=== PATIENT | male | born 1970 | race Caucasian/White ===

== ENCOUNTER → 2017-06-21 | Outpatient (CLI) | payer BC ==
[~2017-06-21] MED LIST: ADVI200T PO; AKWASOL OU; BACT800T5 PO; COLC1CAP PO; KEFL500C17 PO; KETO10TAB PO; LISI-538; LISI-538 PO; PERCOCET PO; SULFAMETHOXAZOLE-TMP
--- NOTE | 2017-06-22 02:32 | REP ---
Clinical: Pain. Technique: AP, lateral, bilateral oblique and sunrise views left knee . Findings: The osseous structures and joint spaces are intact and normal for age. There is no evidence for acute fracture or dislocation. No joint effusion is appreciated. Surrounding soft tissues are unremarkable. No subcutaneous emphysema or radiodense foreign body. Impression: Mild age-related changes. No acute fracture or dislocation. Signed by Reilly Santos MD 06/22/2017 02:23 A
== END ==
LOC: M CLY 09:14
PROVIDERS: ATTEND Nurse Practitioner
DX: M25.562 Pain in left knee (principal)

== ENCOUNTER → 2017-06-21 | Outpatient (REF) | payer BC ==
[2017-06-21 12:37] LABS: ALBUMIN 3.8 GM/DL (3.2-5.2); ALBUMIN/GLOBULIN RATIO 1.19 (1.00-1.93); ALKALINE PHOSPHATASE 69 U/L (45-117); ALT/SGPT 51 U/L (12-78); ANION GAP 12 MEQ/L (8-16); AST/SGOT 33 U/L (15-37); BILIRUBIN,TOTAL 0.5 MG/DL (0.2-1.0); BLOOD UREA NITROGEN 13 MG/DL (7-18); CALCIUM LEVEL 8.8 MG/DL (8.5-10.1); CARBON DIOXIDE LEVEL 24 MEQ/L (21-32); CHLORIDE LEVEL 104 MEQ/L (98-107); CHOLESTEROL LEVEL 187 MG/DL (<200); CREATININE FOR GFR 0.99 MG/DL (0.70-1.30); GLOMERULAR FILTRATION RATE > 60.0 (>60); GLUCOSE, FASTING 96 MG/DL (70-105); POTASSIUM SERUM 4.5 MEQ/L (3.5-5.1); SODIUM LEVEL 140 MEQ/L (136-145); TRIGLYCERIDES LEVEL 205 MG/DL (<150)
== END ==
LOC: M SFHCCLAY 08:44
PROVIDERS: ATTEND Nurse Practitioner
DX: R73.01 Impaired fasting glucose (principal); F17.200 Nicotine dependence, unspecified, uncomplicated; I10 Essential (primary) hypertension

== ENCOUNTER 2017-06-26 10:10 | Inpatient (IN) | payer BC ==
[~2017-06-26] VITALS: Ht 180.3 cm; Wt 114.9 kg
[2017-06-26] MEDS ORDERED: LISI-538 (10:21)
[2017-06-26] MEDS ORDERED: SULFAMETHOXAZOLE-TMP (10:21)
[2017-06-26] MEDS ORDERED: ONDANSETRON 4MG/2ML VIAL (J2405) IV ONE (10:45)
[2017-06-26] MEDS ORDERED: NS 1,000 ML IV ONE (10:45)
[2017-06-26] MEDS ORDERED: MORPHINE 4 MG/ML 1ML SYRINGE IV ONE ×3 (10:45→14:00)
[2017-06-26] MEDS ORDERED: cefTRIAXone SOD 2 GM in D5W MINI-BAG PLUS 50 ML IV ONE (11:00)
[2017-06-26 11:17] LABS: BASO % 0.3 % (0.0-1.0); EOS # 0.2 K/mm3 (0.0-0.50); EOS % 1.2 % (0.0-3.0); LARGE UNSTAINED CELL # 0.1 K/mm3 (0.0-0.4); LARGE UNSTAINED CELL % 0.7 % (0.0-4.0); LYMPH # 1.2 K/mm3 (1.5-4.5); LYMPH % 7.8 % (24.0-44.0); MEAN CORPUSCULAR HEMOGLOBIN 31.7 pg (27.0-33.0); MEAN CORPUSCULAR HGB CONC 34.4 g/dl (32.0-36.5); MEAN CORPUSCULAR VOLUME 92.2 fl (80.0-96.0); MONO # 0.7 K/mm3 (0.0-0.8); MONO % 5.1 % (0.0-5.0); NEUTROPHILS % 84.9 % (36.0-66.0); PLATELET COUNT, AUTOMATED 350 k/mm3 (150-450); RED CELL DISTRIBUTION WIDTH 13.2 % (11.5-14.5); WHITE BLOOD COUNT 14.1 K/mm3 (4.0-10.0)
[2017-06-26 11:39] LABS: CALCIUM LEVEL 8.3 MG/DL (8.5-10.1); CREATININE FOR GFR 1.49 MG/DL (0.70-1.30); GLOMERULAR FILTRATION RATE 53.8 (>60); POTASSIUM SERUM 4.1 MEQ/L (3.5-5.1)
[2017-06-26] MEDS ORDERED: ADVI200T PO (12:02)
[2017-06-26] MEDS ORDERED: LISI-538 PO (12:02)
[2017-06-26] MEDS ORDERED: BACT800T5 PO (12:02)
[2017-06-26] MEDS ORDERED: ISOVUE-370 76% 100ML VIAL (Q9967) As Ordered ONE (12:34)
[2017-06-26] MEDS: HEPARIN SOD (PORCINE) 5000 UNITS/ML VIAL SQ SCH ×2 (14:00→23:18)
--- NOTE | 2017-06-26 14:03 | REP ---
SCROTAL ULTRASOUND: 06/26/2017. Clinical history: Left adam-scrotal pain, swelling, scrotal cellulitis. Findings: Sonographic evaluation of the scrotum and contents show the right testis 5.1 x 3.1 x 2.5 cm. It is homogeneous in echotexture and shows no discrete mass or cyst. There is a solitary calcification in that testis. There is normal color flow within the testis. The Doppler tracing shows resistive index 0.50, normal. The epididymal head has a CC diameter of 7 mm and is unremarkable. No hydrocele. The left testis is smaller, 3.7 x 2.4 x 3.1 cm. It is generally heterogeneous. It is subtly heterogeneous in its posterior aspect. There is no color flow seen within it on multiple interrogations. There is color flow around it. Trace amount of fluid around that testis. The epididymal head has a CC diameter of 13.5 mm. No epididymal head cyst. Adjacent to the testis at the scrotal wall is a 9.6 x 7.8 x 5.2 cm hypoechoic complex focus, likely representing a scrotal abscess. There were no other significant findings. Scrotal wall thickness up to 12.1 mm. Impression: 1. Torsion of the left testis with no color flow within it and slight heterogeneity. It is smaller than the right testis so this may have occurred previously. 2. Large scrotal abscess suggested 9.6 x 7.8 x 5.2 cm. Trace amount of fluid directly around the testis. 3. Right testis normal in echotexture, size and with normal blood flow. Signed by Carl Shaw MD 06/26/2017 06:11 P
--- NOTE | 2017-06-26 14:17 | REP ---
CT ABDOMEN AND PELVIS WITH CONTRAST: 06/26/2017. Comparison: Scrotal ultrasound today. Clinical history: Left scrotal abscess, torsion left testis. Technique: The patient received a bolus of 100 mL of Isovue 370 scanning through the abdomen and pelvis with coronal and sagittal reconstructions. Findings: CT abdomen: The lung bases show minor dependent atelectatic and linear atelectatic changes but were otherwise clear. Heart is not enlarged. No pericardial thickening or effusion. No hiatal hernia. Liver and spleen are not enlarged and show no focal lesion. There is no biliary dilatation nor adjacent ascites in the upper abdomen. Gallbladder shows no calcified stone or mass. Pancreas unremarkable. Adrenal glands were normal. There is scattered diverticulosis in the left colon. The remainder of the abdominal portion of colon unremarkable. The appendix is retrocecal in ascends so that its tip is lateral to the distal or inferior margin of the right lobe of the liver in the mid axillary line of the right upper quadrant. It is normal. Kidneys show function without obstruction, stone or mass. There is no hydronephrosis. I see no hydroureter, renal, ureteral or bladder stone on either side. Small bowel loops are grossly intact. No colitis. No perforation or free air in the abdomen or pelvis. The bones show Schmorl's nodes at multiple endplates without acute compression deformity or destructive lesion. There is some minor hypertrophic facet changes lower lumbar spine. Visible ribs unremarkable. No retroperitoneal adenopathy or aortic abnormality. CT pelvis: Bony hips, pelvis, sacrum, and SI joints unremarkable. Bladder without wall thickening mass or stone. Prostate has a few calcifications inferiorly. There is no pelvic ascites or adenopathy. No ventral or inguinal hernia noted. There are bilateral reactive inguinal nodes. There is a large scrotal mass corresponding to the presumed scrotal abscess seen on ultrasound, it is hypodensity and measures at least 9.5 x 6.4 x 8.4 cm. There were no air bubbles within it. There is no hernia. Scrotal wall is thickened and edematous. Distal left colon, sigmoid and rectum are without any acute findings. Small bowel loops in the deep pelvis unremarkable. Impression: 1. Left-sided scrotal abscess measuring 9.5 x 6.4 x 8.4 cm. No air bubbles within. No inguinal or scrotal hernia evident. Edematous scrotal wall. Reactive adenopathy in both inguinal regions. 2. No renal, ureteral or bladder stone. No hydronephrosis. 3. There were no other significant or acute findings. This study was reviewed at the workstation with the consulting urologist, Dr. Bean. Signed by Carl Shaw MD 06/26/2017 06:19 P
[2017-06-26] MEDS ORDERED: ONDANSETRON 4MG/2ML VIAL (J2405) IV PRN ×2 (14:45→18:45)
[2017-06-26] MEDS ORDERED: ACETAMINOPHEN TAB 650MG DOSE (2X325MG) PO PRN (14:45)
[2017-06-26] MEDS: D5W/0.9% SODIUM CHLORIDE 1,000 ML IV SCH (15:36)
[2017-06-26] MEDS: PIPERACILLIN/TAZOBACTAM SOD 3.375 GM in D5W MINI-BAG PLUS 50 ML IV SCH ×2 (15:39→23:17)
[2017-06-26] MEDS ORDERED: VANCOMYCIN 1000 MG/20 ML VIAL (J3370) As Ordered ONE (16:03)
[2017-06-26] MEDS: VANCOMYCIN HCL 1,000 MG, VIAL MATE ADAPTER 1 EACH in D5W 250 ML IV SCH (16:35)
[2017-06-26] MEDS ORDERED: PROPOFOL 200 MG/20 ML VIAL As Ordered ONE (16:48)
[2017-06-26] MEDS ORDERED: LIDOCAINE 2% INJ 100 MG/5 ML SDV (FOR ANES.) As Ordered ONE (16:48)
[2017-06-26] MEDS ORDERED: ONDANSETRON 4MG/2ML VIAL (J2405) As Ordered ONE (16:48)
[2017-06-26] MEDS ORDERED: MIDAZOLAM INJ 2 MG/2 ML VIAL (J2250) As Ordered ONE (16:48)
[2017-06-26] MEDS ORDERED: fentaNYL 100 MCG/2 ML INJECTION (J3010) As Ordered ONE (16:48)
[2017-06-26] MEDS ORDERED: HYDROmorphone HCL 2 MG/ML 1ML VIAL (J1170) As Ordered ONE (16:49)
[2017-06-26] MEDS ORDERED: PHENYLephrine HCL 500 MCG/5 ML (100MCG/ML) SYRINGE (J2370) As Ordered ONE (16:56)
[2017-06-26] MEDS ORDERED: LIDOCAINE W/EPINEPHRINE 1% 20ML VIAL As Ordered ONE (17:53)
[2017-06-26] MEDS ORDERED: LIDOCAINE 1% SDV INJ 30 ML VIAL As Ordered ONE (17:53)
[2017-06-26] MEDS ORDERED: MEPERIDINE INJ 25 MG/ML VIAL (J2175) As Ordered ONE (18:30)
[2017-06-26] MEDS: MEPERIDINE INJ 25 MG/ML VIAL (J2175) IV PRN ×2 (18:33→18:46)
[2017-06-26] MEDS ORDERED: fentaNYL 100 MCG/2 ML INJECTION (J3010) IV PRN (18:45)
[2017-06-26] MEDS ORDERED: MORPHINE 2 MG/ML 1ML SYRINGE IV PRN ×2 (18:45→19:00)
[2017-06-26] MEDS ORDERED: LR 1,000 ML IV SCH (18:45)
[2017-06-26] MEDS ORDERED: PERCOCET 5MG/325MG TAB PO PRN (19:00)
[2017-06-26] MEDS ORDERED: PERCOCET 5MG/325MG TAB As Ordered ONE (19:02)
[2017-06-26 19:30] VITALS: BP 124/59
[2017-06-26 20:00] VITALS: BP 113/59
[2017-06-26] MEDS: MORPHINE 2 MG/ML 1ML SYRINGE IV PRN (20:25)
[2017-06-26 21:00] VITALS: BP 103/59
[2017-06-26 22:13] VITALS: BP 96/51
[2017-06-26 23:09] VITALS: BP 107/55
[2017-06-26] MEDS: PERCOCET 5MG/325MG TAB PO PRN (23:17)
[2017-06-26] MEDS: FAMOTIDINE 20 MG TAB PO SCH (23:17)
[2017-06-27] VITALS (14 sets, daily range): BP systolic 104–158; BP diastolic 55–95; O2SAT 92–96
[2017-06-27] MEDS: MORPHINE 2 MG/ML 1ML SYRINGE IV PRN ×4 (00:25→08:07)
[2017-06-27] MEDS: VANCOMYCIN HCL 1,000 MG, VIAL MATE ADAPTER 1 EACH in D5W 250 ML IV SCH ×3 (00:26→17:56)
[2017-06-27] MEDS ORDERED: MORPHINE 2 MG/ML 1ML SYRINGE IV ONE ×2 (02:45→11:30)
[2017-06-27] MEDS: PERCOCET 5MG/325MG TAB PO PRN ×3 (03:27→14:53)
[2017-06-27] MEDS: PIPERACILLIN/TAZOBACTAM SOD 3.375 GM in D5W MINI-BAG PLUS 50 ML IV SCH ×4 (03:27→21:23)
[2017-06-27 05:20] LABS: BASO % 0.4 % (0.0-1.0); EOS # 0.2 K/mm3 (0.0-0.50); EOS % 2.1 % (0.0-3.0); LARGE UNSTAINED CELL # 0.2 K/mm3 (0.0-0.4); LARGE UNSTAINED CELL % 1.6 % (0.0-4.0); LYMPH # 1.3 K/mm3 (1.5-4.5); LYMPH % 12.2 % (24.0-44.0); MEAN CORPUSCULAR HEMOGLOBIN 31.6 pg (27.0-33.0); MEAN CORPUSCULAR HGB CONC 33.9 g/dl (32.0-36.5); MEAN CORPUSCULAR VOLUME 93.3 fl (80.0-96.0); MONO # 0.7 K/mm3 (0.0-0.8); MONO % 6.3 % (0.0-5.0); NEUTROPHILS # 8.2 K/mm3 (1.8-7.7); NEUTROPHILS % 77.3 % (36.0-66.0); PLATELET COUNT, AUTOMATED 311 k/mm3 (150-450); RED CELL DISTRIBUTION WIDTH 13.3 % (11.5-14.5); WHITE BLOOD COUNT 10.6 K/mm3 (4.0-10.0)
[2017-06-27 05:31] LABS: CALCIUM LEVEL 7.5 MG/DL (8.5-10.1); CREATININE FOR GFR 1.71 MG/DL (0.70-1.30); GLOMERULAR FILTRATION RATE 45.9 (>60); POTASSIUM SERUM 3.8 MEQ/L (3.5-5.1)
[2017-06-27] MEDS: HEPARIN SOD (PORCINE) 5000 UNITS/ML VIAL SQ SCH ×3 (05:43→21:18)
[2017-06-27] MEDS: D5W/0.9% SODIUM CHLORIDE 1,000 ML IV SCH (05:44)
[2017-06-27] MEDS: diphenhydrAMINE INJ 50MG/ML VIAL (J1200) IV PRN ×2 (06:19→21:35)
--- NOTE | 2017-06-27 07:34 | PHACANCOPD ---
PHARMACY VANCOMYCIN DOSING Pt Demographics Demographics Patient Age:47 , Weight:114.900 , Gender: male Adjusted Body Weight Date: 06/27/17, Adjusted Body Weight: Kg Events Past 24 Hours Events Past 24 Hours: YES: Elevation in WBC, Pending Diagnostics Vancomycin Vancomycin indication: broad spectrum coverage for scrotal abscess amd possible sep Vancomycin Target Ranges: 10-20 mcg/ml Vancomycin Load Y/N: No Load Dose Date Time Vancomycin Load Dose: Date: Time: Vancomycin Dose Date: 06/27/17. Current Vancomycin Dose: [1g IV Q8H] Intermittent Dosing?: No Labs Labs Item Value Date Time White Blood Count 10.6 K/mm3 H 06/27/17 0509 White Blood Count 14.1 K/mm3 H 06/26/17 1101 C-Reactive Protein, Quantitative 23.50 MG/DL H 06/26/17 1101 Micro Microbiology 06/26/17 Blood Culture, Received Pending 06/26/17 Blood Culture, Received Pending 06/26/17 Gram Stain, Received Pending 06/26/17 Wound Culture, Received Pending 06/26/17 Anaerobic Culture, Received Pending 06/26/17 Gram Stain - Final, Resulted 06/26/17 Wound Culture, Resulted Pending 06/26/17 Urine Culture, Received Pending 06/26/17 Gram Stain, Received Pending 06/26/17 Wound Culture, Received Pending Creatinine Clearance Date:06/27/17. Estimated Creatinine Clearance: [~65ml/min]. Assessment and Plan Maintaining Current Dose?: Yes Reason for dose change: No Dose Change Pharmacist Note Pharmacist Note Date: 06/27/17. Pharmacist note: Day #1 empiric IV zosyn/vancomycin initiated at 1g IV Q8H for the treatment of a left scrotal abscess - aiming for a goal trough of 10-20mcg/ml. The patient has failed outpatient antibiotic treatment. WBC and CRP are elevated upon admission, but patient remains afebrile. There is no PMH of MRSA or vanco use here at [facility]. Baseline scr was 0.99 and is now elevated at 1.49. A vancomycin trough has been scheduled for 06/27/17@1600. We will continue to monitor and adjust dosing as needed. DRISS LIZARRAGA [facility]ARM[facility] Jun 27, 2017 07:34
--- NOTE | 2017-06-27 08:38 | IPNPDOC ---
Assessment/Plan Date Seen The patient was seen on 06/27/17. Plan/VTE VTE Prophylaxis Ordered?: Yes Subjective Review oF Systems Chief Complaint POD#1 s/p left scrotal abscess debridement and left orchiectomy No acute events overnight. pain controlled with morphine and percocet. No nausea. Patient is tolerating diet. low grade fever this morning to 100.2 T100.2 VSS NAD Abdomen soft, nt, nd Ext wwp Urine clear yellow Scrotal wound, erythematous with fibrinous exudate, packing and dressing changed Laboratory Tests 06/26/17 11:01 06/27/17 05:09 47 year old male with chronic epididymoorchitis and now admission for 9.6 cm scrotal abscess and no flow to left testicle, who is POD#1 s/p scrotal debridement and exploration, and left orchiectomy - Continue Vancomycin and Zosyn. Pharmacy to adjust for renal function and vanco trough - Follow-up wound cultures, blood cultures, urine cultures - Hospitalist consult for creatinine elevation to 1.71. Likely due to infection and possible prerenal. Hold lisinopril - Continue aggarwal until creatinine improves - Dressing changes BID with wet to dry (saline). Changed pain medication to dilaudid for better pain control and for dressing changes. - Signed out to Dr. Ley from urology who will be taking over care of this patient Objective Vital Signs/I&O Vital Signs Date Time Temp Pulse Resp B/P (MAP) Pulse Ox O2 Delivery O2 Flow Rate FiO2 06/27/17 08:07 18 06/27/17 08:00 100.2 71 105/55 (72) 97 Room Air 06/27/17 05:43 3.0 I&O- Last 24 Hours up to 6 AM 06/27/17 06:00 Intake Total 2740 ml Output Total 1575 ml Balance 1165 ml Laboratory Data Labs 24H Laboratory Tests 2 06/26/17 10:49: Urine Appearance CLEAR, Urine Color YELLOW, Urine pH 5.0, Urine Specific [place] 1.011, Urine Protein NEGATIVE, Urine Glucose (UA) NEGATIVE, Urine Ketones 1+H, Urine Urobilinogen 2.0H, Urine Bilirubin NEGATIVE, Urine Leukocyte Esterase NEGATIVE, Urine Blood NEGATIVE, Urine Nitrite NEGATIVE, Urine WBC (Auto ) 4H, Urine RBC (Auto) 2, Urine Hyaline Casts (Auto) 1, Urine Bacteria (Auto) NEGATIVE, Urine Squamous Epithelial Cells 0, Urine Mucus (Auto) SMALL, Urine Sperm (Auto) , Chlamydia trachomatis DNA (DELBERT) NEGATIVE, Neisseria gonorrhoeae DNA (DELBERT) NEGATIVE 06/26/17 11:01: White Blood Count 14.1H, Red Blood Count 5.11, Hemoglobin 16.2, Hematocrit 47.2 , Mean Corpuscular Volume 92.2, Mean Corpuscular Hemoglobin 31.7, Mean Corpuscular Hemoglobin Concent 34.4, Red Cell Distribution Width 13.2, Platelet Count 350, Neutrophils (%) (Auto) 84.9H, Lymphocytes (%) (Auto) 7.8L, Monocytes (%) (Auto) 5.1H, Eosinophils (%) (Auto) 1.2, Basophils (%) (Auto) 0.3, Neutrophils # (Auto) 12.0H, Lymphocytes # (Auto) 1.2L, Monocytes # (Auto) 0.7, Eosinophils # (Auto) 0.2, Basophils # (Auto) 0.0, Large Unclassified Cells % 0.7 , Large Unclassified Cells # 0.1, Anion Gap 11, Glomerular Filtration Rate 53.8L , Blood Urea Nitrogen 18, Creatinine 1.49H, Sodium Level 135L, Potassium Level 4.1, Chloride Level 100, Carbon Dioxide Level 24, Calcium Level 8.3L, C- Reactive Protein, Quantitative 23.50H 06/27/17 05:09: White Blood Count 10.6H, Red Blood Count 4.21L, Hemoglobin 13.3#L, Hematocrit 39.3L, Mean Corpuscular Volume 93.3, Mean Corpuscular Hemoglobin 31.6, Mean Corpuscular Hemoglobin Concent 33.9, Red Cell Distribution Width 13.3, Platelet Count 311, Neutrophils (%) (Auto) 77.3H, Lymphocytes (%) (Auto) 12.2L, Monocytes (%) (Auto) 6.3H, Eosinophils (%) (Auto) 2.1, Basophils (%) (Auto) 0.4 , Neutrophils # (Auto) 8.2H, Lymphocytes # (Auto) 1.3L, Monocytes # (Auto) 0.7, Eosinophils # (Auto) 0.2, Basophils # (Auto) 0.0, Large Unclassified Cells % 1.6 , Large Unclassified Cells # 0.2, Anion Gap 9, Glomerular Filtration Rate 45.9L , Blood Urea Nitrogen 17, Creatinine 1.71H, Sodium Level 134L, Potassium Level 3.8, Chloride Level 100, Carbon Dioxide Level 25, Calcium Level 7.5L CBC/BMP Laboratory Tests 06/26/17 11:01 Red Blood Count 5.11, Mean Corpuscular Volume 92.2, Mean Corpuscular Hemoglobin 31.7, Mean Corpuscular Hemoglobin Concent 34.4, Red Cell Distribution Width 13.2 , Neutrophils (%) (Auto) 84.9 H, Lymphocytes (%) (Auto) 7.8 L, Monocytes (%) ( Auto) 5.1 H, Eosinophils (%) (Auto) 1.2, Basophils (%) (Auto) 0.3, Neutrophils # (Auto) 12.0 H, Lymphocytes # (Auto) 1.2 L, Monocytes # (Auto) 0.7, Eosinophils # (Auto) 0.2, Basophils # (Auto) 0.0, Calcium Level 8.3 L 06/27/17 05:09 Red Blood Count 4.21 L, Mean Corpuscular Volume 93.3, Mean Corpuscular Hemoglobin 31.6, Mean Corpuscular Hemoglobin Concent 33.9, Red Cell Distribution Width 13.3, Neutrophils (%) (Auto) 77.3 H, Lymphocytes (%) (Auto) 12.2 L, Monocytes (%) (Auto) 6.3 H, Eosinophils (%) (Auto) 2.1, Basophils (%) ( Auto) 0.4, Neutrophils # (Auto) 8.2 H, Lymphocytes # (Auto) 1.3 L, Monocytes # ( Auto) 0.7, Eosinophils # (Auto) 0.2, Basophils # (Auto) 0.0, Calcium Level 7.5 L Microbiology Microbiology 06/26/17 Blood Culture, Received Pending 06/26/17 Blood Culture, Received Pending 06/26/17 Gram Stain - Final, Resulted 06/26/17 Wound Culture, Resulted Pending 06/26/17 Anaerobic Culture, Received Pending 06/26/17 Gram Stain - Final, Resulted 06/26/17 Wound Culture, Resulted Pending 06/26/17 Urine Culture, Received Pending 06/26/17 Gram Stain - Final, Resulted 06/26/17 Wound Culture, Resulted Pending OLU SALEEM MD Jun 27, 2017 08:38
[2017-06-27] MEDS: FAMOTIDINE 20 MG TAB PO SCH (08:49)
--- NOTE | 2017-06-27 08:53 | HPE ---
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 Tim Bean CHIEF COMPLAINT: Scrotal pain, fever HISTORY OF PRESENT ILLNESS: The patient is a 47-year-old man with a history of chronic testicular pain for the past year on the left side. He had multiple infections of the left testicle over the past year with three to four hospitalizations, according to the patient. This was in [place] at [facility]. He recently began having testicular pain on the left side, which started 8 days ago and has progressively become worse. He reports having fevers and chills at home. He called his urologist's office last weekend, which is approximately 7 days ago and they prescribed him antibiotics with Bactrim and Cipro. His scrotal pain has not improved while being on those antibiotics. His scrotal swelling continued to increase in size. Of note, the patient was discussing with his urologist in [place] to have the left testicle removed due to these chronic infections and has delayed having an elective left orchiectomy due to him not wanting to miss work at this time. When the patient presented to the emergency room, he was febrile to 102. There was left scrotal swelling. Scrotal ultrasound showed left testicular torsion with no blood flow to the left testicle. The left testicle is also smaller in size than the right testicle. There was a large 9.6 cm left scrotal abscess compressing the left testicle. A CT of the abdomen and pelvis was performed, which did not demonstrate any hernias or retroperitoneal lymphadenopathy. PAST MEDICAL HISTORY: 1. Hypertension. 2. Chronic testicular pain. 3. Multiple episodes of epididymoorchitis as documented on ultrasounds from [facility] PAST SURGICAL HISTORY: 1. Hand surgery. MEDICATIONS: - Lisinopril - Bactrim - Cipro ALLERGIES: No known allergies. SOCIAL HISTORY: The patient is a current smoker. He has been smoking for 20 years. Denies any drug use. Denies any history of sexually transmitted diseases. He does report occasional alcohol use. PHYSICAL EXAMINATION: Febrile. Temperature 102, pulse 86, respiratory rate 18, blood pressure 130/71, pulse oximetry 98% on room air. The patient was not in acute distress. HEENT: Normocephalic, atraumatic. Extraocular movements intact. ABDOMINAL EXAM: Abdomen is soft, nontender, nondistended. EXTREMITIES: Warm and well perfused. GENITAL EXAM: Demonstrated enlarged, erythematous scrotum with taut skin on the left side and serous drainage from the skin. This area was tender and erythematous. There was an area of necrotic skin overlying the left testicle which appeared to be the beginning of vida's gangrene. The right side of the scrotum was erythematous but was not tender and the skin appeared normal in appearance on this side other than erythema. LABORATORY RESULTS: White blood cell count is 14.1, hemoglobin 16.2, hematocrit 47.2, platelets 350. Chemistry: Creatinine 1.49. Blood cultures, urine cultures and wound cultures are pending. IMAGING: Scrotal ultrasound shows no color flow within the left testicle and slight heterogeneity. It is smaller than the right testis. Large scrotal abscess measuring 9.6 x 7.8 x 5.2 cm in size. Right testis normal in size and with normal blood flow. ASSESSMENT: The patient is a 47-year-old man with history of chronic epididymoorchitis on the left side and with presentation of left scrotal abscess and left testicular torsion. I had a long discussion with the patient regarding the need for surgery to drain the abscess. I also discussed with the patient about possible orchiopexy if the testicular tissue appeared viable. The patient was adamant that he did not want the left testicle kept in place; he wished to have the testicle surgically removed due to the chronic issues with left testicular swelling and infection. I explained to him the risks of the procedure, which would be left scrotal exploration, scrotal debridement, left orchiectomy, risks of which includes bleeding, infection, damage to surrounding structures, need for further procedures, diminishment in his fertility, risk of having low testosterone with one testicle and the possibility of chronic scrotal pain after the testicle is removed. The patient was in agreement to undergo the procedure. Also, I did not recommend an orchiopexy on the right side in order to not introduce infection into that testicle. PLAN: 1. The patient will be admitted to the progressive care unit (PCU) to be on a monitored bed in case there are signs of sepsis after the scrotal debridement. 2. The patient will be taken to the operating room for scrotal exploration, scrotal debridement, left orchiectomy. Risks, benefits and alternatives were discussed, as described above. 3. The patient was given ceftriaxone in the emergency room. We will broaden antibiotic coverage. 4. We will obtain a wound culture in the operating room. 5. I explained to the patient that the scrotal incision will not be closed at the end of the procedure due to the infection and he will have scrotal packing, which will need to be changed at least daily. DELANOD
[2017-06-27] MEDS: HYDROmorphone HCL 1 MG/ML SYRINGE (J1170) IV PRN ×4 (09:59→21:18)
--- NOTE | 2017-06-27 10:50 | RO ---
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 ANESTHESIA: General with laryngeal mask airway (LMA). ANESTHESIOLOGIST: Dr. Goldstein EBL: 50cc IVF: 1.6 liters of lactated ringer's solution UOP: 100cc Specimens: Left testicle, Wound cultures INDICATIONS FOR THE PROCEDURE: Patient is a 47-year-old man who has been having chronic left testicular pain and scrotal pain for the past year with 3-4 episodes of epididymoorchitis requiring hospitalizations and intravenous (IV) antibiotics. He was being seen by a urologist in [place], Dr. Lee. He had discussions with Dr. Lee to have the left testicle removed electively in the past due to his chronic testicular pain and epididymoorchitis on the left side. 8 days prior to this presentation to the emergency room, patient began developing acute left scrotal pain and swelling as well as redness. He saw his PCP in [place] 5 days prior to admission and was prescribed both Cipro and Flagyl to be taken orally. The pain and swelling became progressively worse despite being on the antibiotics and patient reports subjective fever and chills at home. He denies nausea or vomiting. Upon presentation to the emergency room today, patient was febrile to 102 degrees. He was having significant left scrotal pain and swelling. Scrotal ultrasound was obtained, which demonstrated a large, 9.6 cm, left scrotal abscess. There was no flow to the left testicle. The left testicle was considerably smaller than the right testicle, and it appeared to have chronic atrophy. After these findings on ultrasound, I had a long discussion with the patient regarding performing a scrotal exploration, abscess drainage and debridement. I discussed the findings of lack of flow on Doppler ultrasound in the left testicle and we discussed performing left orchiopexy if the testicle was viable versus removing the left testicle. The patient was adamant that he did not want a left orchiopexy and wanted the left testicle removed because of his chronic left testicular pain and issues with infections on the left side of the scrotum and in the left testicle. Also, I did not do a right orchiopexy because of the risk of introducing infection to the right testicle. We discussed the risks of the operation including bleeding, infection, damage to surrounding structures, need for further procedures, decrease in fertility, decrease in androgen production and need for androgen supplementation in the future, and chronic pain in the scrotum. The patient was aware of all risks, benefits, and alternatives and wished to proceed with the procedure. DESCRIPTION OF PROCEDURE: The patient was taken to the operating room after informed consent and all necessary paperwork confirmed He was placed in the supine position. He was induced by the anesthesia team and then LMA was placed. The patient was then prepped and draped in the usual sterile fashion in supine position. Vancomycin and Zosyn antibiotics were administered prior to the surgery. A 6 cm incision was made in the left hemiscrotum at the level of the gangrenous scrotal skin and there was significant amount of purulent drainage that started to pour out of the wound. This was sent off for culture in both specimen cup as well as in an aerobic and anaerobic swab. The rest of the purulent drainage was suctioned out with the Yankauer suction. There was around 250cc of purulent drainage. The area was irrigated heavily and dried with lap pads. At this point, there was a lot of inflammation and scar tissue in the area. It was difficult to identify the tunic vaginalis and the area of the left testicle. I used an intraoperative ultrasound to identify the area of the left testicle. Also, of note, the ultrasound probe was used to ensure that the right testicle was viable and in position during the surgery. The left testicle and tunica vaginalis were densely adherent to the abscess cavity and as I was debriding the abscess cavity the left tunica was entered. The left testicle appeared heavily scarred, atrophic and torsed. There was heavy fibrosis and inflammation circumferentially around the testicle which needed to be sharply dissected with Metzenbaum scissors. The left testicle was dissected away the abscess cavity circumferentially. It was significantly scarred in and it was difficult to identify tissue planes. However, once the tissue planes were identified, the entire left testicle was able to be mobilized using sharp dissection with Metzenbaum scissors. Once the entire testicle was freed, except for the spermatic cord, the cord was identified and clamped with three Mandie clamps, one proximally and two slightly more distally. Each of the two distal clamps was placed on half of the cord. I used #0 silk ties and #0 silk suture ligatures to suture around each of the two distal bundles. I then used a #0 silk tie to tie around the more proximal Mandie clamp as a safety suture for the cord. At this point, the testicle was removed using Metzenbaum scissors. The epididymis was heavily scarred onto the testicle. There was significant rind between the tunic vaginalis and the scrotal abscess cavity. Some of this rind was debrided. At this point, I irrigated the wounds heavily with normal saline and the nonviable, gangrenous scrotal skin was debrided. The width of skin removed was about 1 cm. At this point, the incision was packed with Kerlix and on top of the scrotum scrotal fluffs and scrotal support was placed. Of note, I used 1% lidocaine to perform a cord block as well as to inject the skin. The lidocaine was without epinephrine. The patient was taken to the recovery room without incident. An 18-Irish Aggarwal catheter was placed at the beginning of the procedure. The Aggarwal catheter was left in place after the procedure overnight. PLAN: 1. We will need to keep the patient in a monitored bed to ensure that he does not develop sepsis. 2. The patient will need to have wet-to-dry dressing changes performed in his scrotal wound. 3. The patient will be admitted until we get culture results to help tailor his antibiotic therapy. Of note, his infection became worse on Cipro and Bactrim. Therefore, I suspect that his bacteria that is causing this infection may be resistant to certain antibiotics. ZANE
[2017-06-27] MEDS: LR 1,000 ML IV SCH (14:57)
--- NOTE | 2017-06-27 15:45 | REP ---
Renal ultrasound, stat request for acute on chronic renal failure. The kidneys are normal size. Right kidney measures 13.4 6.3 x 5.7 cm. Left kidney measures 14.1 5.6 by 4.5 cm. Renal cortical echogenicity is normal bilaterally. There is no hydronephrosis on the right on the left. There are no renal calculi, masses or cysts on the right on the left. Bladder ultrasound: There is a Fuentes catheter in the urinary bladder and the bladder cannot be evaluated by ultrasound at this time. Impression: Normal renal ultrasound. The bladder cannot be evaluated at this time. Signed by Luis Wilkinson MD 06/27/2017 03:36 P
[2017-06-27 18:04] LABS: OSMOLALITY URINE 419 MOSM/KG (500-800)
--- NOTE | 2017-06-27 21:46 | CR ---
DATE OF CONSULTATION: 06/27/2017 PRIMARY CARE PROVIDER: La Nena Reddy CONSULTATION REPORT FOR: Tim Rodriguez MD REASON FOR CONSULTATION: Acute kidney injury (ALYSHA). CHIEF COMPLAINT: Scrotal pain. HISTORY OF PRESENT ILLNESS: This is a 47-year-old male patient with underlying medical history of chronic testicular pain for the past 1 year, left-sided, and had multiple infections of left testicle over the past year with 3-4 hospitalizations according to the patient and also with underlying medical history of hypertension. Denies history of kidney disease. Was seen at [facility] recently. Patient began to have left-sided testicular pain again 5 days ago and progressively became worse. Reported fevers and chills at home. Called the urology office, Dr. Lee, approximately 7 days ago was prescribed antibiotics, Bactrim and Cipro. Scrotal pain has not improved while being on those medications. His scrotal swelling continued to increase in size and he subsequently presented to the hospital. Found to have a large 9.[address] scan with contrast was performed. Patient went to surgery for debridement and orchiectomy with urology team. Currently admitted under urology team. ALLERGIES: No known drug allergies. PAST MEDICAL HISTORY: 1. Hypertension. 2. Chronic testicular pain with multiple testicular infections. PAST SURGICAL HISTORY: Hand surgery. HOME MEDICATIONS: - ibuprofen 400 mg by mouth four times a day as needed - lisinopril 20 mg by mouth daily - Bactrim Double Strength by mouth twice a day SOCIAL HISTORY: Current smoker, one and a half packs a day for 20 years. Denies any drug use. Drinking alcoholic beverages three times a week, approximately four beers. REVIEW OF SYSTEMS: Reported scrotal pain that has improved. Denies any chest pain, pressure or discomfort. Fuentes catheter in place. All other review of systems are negative. VITAL SIGNS: Temperature 96, pulse 82, respirations 16, blood pressure 131/68, pulse oximetry 93% on room air. GENERAL: Patient alert and oriented times three, in no acute distress. HEENT: Normocephalic, atraumatic. PULMONARY: Bilaterally clear to auscultation. CARDIAC: Regular rate and rhythm. Normal S1, S2. ABDOMEN: Soft, nontender. GENITOURINARY: Dressing clean, dry, intact. Fuentes catheter in place. LABORATORY DATA: WBC 10.4, hemoglobin and hematocrit 13.3/39.3, platelets 311. Chemistry: Sodium 134, potassium 3.8, chloride 100, bicarbonate 25, BUN 17, creatinine 1.7. ASSESSMENT AND PLAN: This is a 47-year-old male patient with underlying medical history of scrotal abscess with chronic testicular pain and hypertension, admitted with testicular abscess, status post surgery. Medicine consulted for acute renal failure. 1. Acute renal insufficiency. Multifactorial, possibly secondary to underlying infection versus contrast induced. Followup urine studies. IV fluids for hydration. Renal ultrasound appreciated. If patient's kidney function does not improve with IV hydration, will consider consulting nephrology. Fuentes catheter in place and patient is making a significant amount of urine. 2. Scrotal infection and abscess, status post surgery by urology. Management as per urology. Continue current antibiotics. Patient on vancomycin and Zosyn. IV fluids. Followup cultures. Pain regimen as per urology. 3. Hypertension. Holding angiotensin-converting enzyme (VISHNU) inhibitor given patient has acute renal insufficiency. Followup blood pressure. Add blood pressure medication as needed. 4. Deep venous thrombosis (DVT) prophylaxis. Heparin subcutaneous. DISPOSITION PLANNING: Management as per urological team.
--- NOTE | 2017-06-27 23:27 | PHACANCOPD ---
PHARMACY VANCOMYCIN DOSING Pt Demographics Demographics Patient Age:47 , Weight:114.900 , Gender: male Adjusted Body Weight Events Past 24 Hours Events Past 24 Hours: NO: Dialysis, Diuretic Therapy, Change in CrCl, Fever, Elevation in WBC, Pending Diagnostics, Pending Procedures, Other Vancomycin Vancomycin indication: broad spectrum coverage for scrotal abscess amd possible sep Vancomycin Target Ranges: 10-20 mcg/ml Vancomycin Load Y/N: No Load Dose Date Time Vancomycin Load Dose: Date: Time: Vancomycin Dose Date: 06/27/17. Current Vancomycin Dose: [1g IV Q8H] Intermittent Dosing?: No Labs Labs Laboratory Tests Test 06/27/17 15:54 Vancomycin Level Trough 11.1 UG/ML (10.0-20.0) Laboratory Tests 06/27/17 05:09 Red Blood Count 4.21, Mean Corpuscular Volume 93.3, Mean Corpuscular Hemoglobin 31.6, Mean Corpuscular Hemoglobin Concent 33.9, Red Cell Distribution Width 13.3 , Neutrophils (%) (Auto) 77.3, Lymphocytes (%) (Auto) 12.2, Monocytes (%) (Auto ) 6.3, Eosinophils (%) (Auto) 2.1, Basophils (%) (Auto) 0.4, Neutrophils # (Auto ) 8.2, Lymphocytes # (Auto) 1.3, Monocytes # (Auto) 0.7, Eosinophils # (Auto) 0.2, Basophils # (Auto) 0.0, Calcium Level 7.5 Micro Microbiology 06/26/17 Blood Culture - Preliminary, Resulted No growth after 24 hours . All specim... 06/26/17 Blood Culture - Preliminary, Resulted No growth after 24 hours . All specim... 06/26/17 Wound Culture, Resulted Pending 06/26/17 Anaerobic Culture, Received Pending 06/26/17 Wound Culture, Resulted Pending 06/26/17 Wound Culture, Resulted Pending Creatinine Clearance Date:06/27/17. Creatinine Clearance: [>65 ml/min]. Assessment and Plan Maintaining Current Dose?: Yes Reason for dose change: No Dose Change Pharmacist Note Pharmacist Note JANNETH REGALADO [facility]ARMAC[facility] Jun 27, 2017 23:27
[2017-06-28] MEDS: VANCOMYCIN HCL 1,000 MG, VIAL MATE ADAPTER 1 EACH in D5W 250 ML IV SCH ×2 (01:09→09:01)
[2017-06-28] MEDS: HYDROmorphone HCL 1 MG/ML SYRINGE (J1170) IV PRN ×3 (01:11→11:37)
[2017-06-28] MEDS: diphenhydrAMINE INJ 50MG/ML VIAL (J1200) IV PRN ×3 (01:20→11:37)
[2017-06-28 04:00] VITALS: BP 185/80
[2017-06-28 05:35] LABS: MEAN CORPUSCULAR HEMOGLOBIN 31.5 pg (27.0-33.0); MEAN CORPUSCULAR HGB CONC 33.5 g/dl (32.0-36.5); RED CELL DISTRIBUTION WIDTH 13.1 % (11.5-14.5); WHITE BLOOD COUNT 9.5 K/mm3 (4.0-10.0)
[2017-06-28 05:48] LABS: ANION GAP 7 MEQ/L (8-16); BLOOD UREA NITROGEN 8 MG/DL (7-18); CALCIUM LEVEL 8.7 MG/DL (8.5-10.1); CARBON DIOXIDE LEVEL 26 MEQ/L (21-32); CHLORIDE LEVEL 106 MEQ/L (98-107); CREATININE FOR GFR 1.18 MG/DL (0.70-1.30); GLOMERULAR FILTRATION RATE > 60.0 (>60); GLUCOSE, FASTING 110 MG/DL (70-105); POTASSIUM SERUM 4.8 MEQ/L (3.5-5.1); SODIUM LEVEL 139 MEQ/L (136-145)
[2017-06-28] MEDS: HEPARIN SOD (PORCINE) 5000 UNITS/ML VIAL SQ SCH ×3 (05:52→21:56)
[2017-06-28] MEDS: PIPERACILLIN/TAZOBACTAM SOD 3.375 GM in D5W MINI-BAG PLUS 50 ML IV SCH (05:53)
[2017-06-28] MEDS: PERCOCET 5MG/325MG TAB PO PRN ×3 (06:30→22:01)
[2017-06-28] MEDS: LR 1,000 ML IV SCH ×3 (07:41→17:46)
[2017-06-28 08:00] VITALS: BP 135/84; O2SAT 95
[2017-06-28] MEDS: FAMOTIDINE 20 MG TAB PO SCH (09:01)
[2017-06-28] MEDS ORDERED: HYDROmorphone HCL 1 MG/ML SYRINGE (J1170) IV ONE (09:15)
--- NOTE | 2017-06-28 10:02 | IPNPDOC ---
Assessment/Plan Date Seen The patient was seen on 06/28/17. Patient Summary This is a 47 y/o M POD2 s/p left orchiectomy and scrotal I&D. He is clinically doing better w/ his WBC trending down, and Cr down to 1.2. His UOP has been excellent. Plan/VTE VTE Prophylaxis Ordered?: Yes VTE Exclusion Mechanical Proph: N/A:VTE Prophy Ordered VTE Exclusion Pharmacological: N/A:VTE Prophy Ordered Plan/Urinary Catheter Urinary Catheter: D/C Aggarwal Plan - wound cultures growing E coli and Strep, both sensitive to ceftriaxone - d/c vanc and zosyn and start ceftriaxone - cont wet to dry packing and dressing changes BID - d/c aggarwal - percocet and dilaudid prn pain - appreciate hospitalist evaluation for ALYSHA - SCDs, SQH - ambulate (may need PT consult) - regular diet Subjective Review oF Systems Chief Complaint The patient is a 47-year-old male admitted with a reason for visit of Left Scrotal Abscess. Events since Last Encounter No acute events o/n. Patient still has moderate pain w/ dressing changes but tolerated it well yesterday evening. He has not ambulated much. He denies f/c/ ns. Objective Physical Examination General Exam: Alert, Cooperative, No Acute Distress ABDOMEN EXAM: Soft Extremity Exam: Tenderness (left knee and ankle tenderness) Skin Exam: Nl turgor and temperature Psych Exam: Mental status NL, Mood NL Other physical findings catheter in place draining clear urine; left scrotal wound clean w/ some granulation tissue present - no erythema or purulent drainage - tender to palpation Vital Signs/I&O Vital Signs Date Time Temp Pulse Resp B/P (MAP) Pulse Ox O2 Delivery O2 Flow Rate FiO2 06/28/17 08:35 18 06/28/17 08:00 95 06/28/17 08:00 97.5 89 135/84 (101) Room Air 06/27/17 05:43 3.0 I&O- Last 24 Hours up to 6 AM 06/28/17 06:00 Intake Total 4420 ml Output Total 7150 ml Balance -2730 ml Laboratory Data Labs 24H Laboratory Tests 2 06/27/17 13:37: Urine Appearance CLEAR, Urine Color YELLOW, Urine pH 5.0, Urine Specific Bend 1.012, Urine Protein NEGATIVE, Urine Glucose (UA) NEGATIVE, Urine Ketones NEGATIVE, Urine Urobilinogen 2.0H, Urine Bilirubin NEGATIVE, Urine Leukocyte Esterase NEGATIVE, Urine Blood NEGATIVE, Urine Nitrite NEGATIVE, Urine WBC (Auto) 4H, Urine RBC (Auto) 7H, Urine Hyaline Casts (Auto) 0, Urine Bacteria (Auto) 1+H, Urine Squamous Epithelial Cells 0, Urine Mucus (Auto) SMALL , Urine Sperm (Auto) , Urine Random Osmolality 419L, Urine Random Creatinine 82.7, Urine Random Total Protein 20.2H, Urine Random Sodium 114, Urine Random Potassium 7.8, Urine Random Chloride 120 06/27/17 15:54: Vancomycin Level Trough 11.1 06/28/17 05:20: Anion Gap 7L, Glomerular Filtration Rate > 60.0, Blood Urea Nitrogen 8#, Creatinine 1.18, Sodium Level 139, Potassium Level 4.8#, Chloride Level 106, Carbon Dioxide Level 26, Calcium Level 8.7# CBC/BMP Laboratory Tests 06/28/17 05:20 Red Blood Count 4.43, Mean Corpuscular Volume 94.0, Mean Corpuscular Hemoglobin 31.5, Mean Corpuscular Hemoglobin Concent 33.5, Red Cell Distribution Width 13.1 , Calcium Level 8.7 # Microbiology Microbiology 06/26/17 Blood Culture - Preliminary, Resulted No growth after 24 hours . All specim... 06/26/17 Blood Culture - Preliminary, Resulted No growth after 24 hours . All specim... 06/26/17 Gram Stain - Final, Resulted 06/26/17 Wound Culture - Preliminary, Resulted Escherichia Coli Streptococcus Sanguinis 06/26/17 Anaerobic Culture, Received Pending 06/26/17 Gram Stain - Final, Resulted 06/26/17 Wound Culture, Resulted Pending 06/26/17 Urine Culture - Final, Complete 06/26/17 Gram Stain - Final, Resulted 06/26/17 Wound Culture, Resulted Pending SKIP FAIR MD Jun 28, 2017 10:02
[2017-06-28] MEDS ORDERED: cefTRIAXone SOD 1 GM in D5W MINI-BAG PLUS 50 ML IV SCH (10:15)
[2017-06-28] MEDS: cefTRIAXone SOD 1 GM in D5W MINI-BAG PLUS 50 ML IV SCH (11:38)
[2017-06-28 12:00] VITALS: BP 133/80
[2017-06-28 16:00] VITALS: BP 141/85
[2017-06-28] MEDS ORDERED: NAPROXEN 250 MG TAB PO PRN (17:15)
[2017-06-28 20:21] VITALS: BP 145/86
[2017-06-28] MEDS: MORPHINE 4 MG/ML 1ML SYRINGE IV PRN (23:16)
--- NOTE | 2017-06-29 02:21 | IPNPDOC ---
Subjective Date Seen The patient was seen on 06/29/17. Subjective Chief Complaint/HPI The patient is a 47-year-old male admitted with a reason for visit of Left Scrotal Abscess. Events since last encounter Patient is status post L orchiectomy for torsion and testicular abscess. However, all he complains of today is L knee pain. States he has chronic L knee pain, and though asymptomatic at the time, had an X ray of it 1 week ago. However, states this is much worse, and swollen as well. States it is keeping him in bed because he does not want to walk on it. Somewhat better with ice and elevation. He has a history of gout, but states it does not feel like this. Constitutional: Denies: Chills, Fever, Malaise Pulmonary: Denies: Dyspnea, Cough Cardiovascular: Denies: Chest Pain Gastrointestinal: Denies: Nausea, Vomiting, Diarrhea, Constipation Genitourinary: Reports: Other Symptoms (scrotal pain) Musculoskeletal: Reports: Leg Pain, Joint Pain Objective Physical Examination General Exam: Positive: Alert, Cooperative Chest Exam: Positive: Clear to auscultation, Normal air movement Heart Exam: Positive: Rate Normal Abdomen Exam: Positive: Normal bowel sounds, Soft, Negative: Tenderness Male Exam: Negative: Normal Genital Exam (L orchiectomy) Extremity Exam: Positive: Swelling (L knee without prominent erythema) Assessment /Plan Problems (1) Left knee pain Problem Text: Will consult ortho. X ray last week. I suspect gout, though patient states this is not typical of gout for him. I suspect a fluid analysis will be helpful. No steroids in light of cufrent infection. As his renal function is improving, will try NSAIDs. (Will DC if they cause a decline in renal function.) (2) Scrotal abscess Status: Acute Problem Text: S/p orchiectomy. (3) Acute kidney injury Problem Text: Improved. Plan/VTE VTE Prophylaxis Ordered?: Yes VTE Exclusion Mechanical Proph: N/A:VTE Prophy Ordered VTE Exclusion Pharmacological: N/A:VTE Prophy Ordered Plan/Urinary Catheter Urinary Catheter: D/C Fuentes VS, I&O, 24H, Fishbone Vital Signs/I&O Vital Signs Date Time Temp Pulse Resp B/P (MAP) Pulse Ox O2 Delivery O2 Flow Rate FiO2 06/28/17 23:26 16 06/28/17 22:01 Room Air 06/28/17 20:21 97.8 80 145/86 (105) 94 06/28/17 17:40 3.0 I&O- Last 24 Hours up to 6 AM 06/29/17 06:00 Intake Total 2875 ml Output Total 650 ml Balance 2225 ml Laboratory Data 24H LABS Laboratory Tests 2 06/28/17 05:20: Anion Gap 7L, Glomerular Filtration Rate > 60.0, Blood Urea Nitrogen 8#, Creatinine 1.18, Sodium Level 139, Potassium Level 4.8#, Chloride Level 106, Carbon Dioxide Level 26, Calcium Level 8.7# CBC/BMP Laboratory Tests 06/28/17 05:20 Red Blood Count 4.43, Mean Corpuscular Volume 94.0, Mean Corpuscular Hemoglobin 31.5, Mean Corpuscular Hemoglobin Concent 33.5, Red Cell Distribution Width 13.1 , Calcium Level 8.7 # Microbiology Microbiology 06/26/17 Blood Culture - Preliminary, Resulted No Growth after 48 hours. All Specime... 06/26/17 Blood Culture - Preliminary, Resulted No Growth after 48 hours. All Specime... 06/26/17 Gram Stain - Final, Resulted 06/26/17 Wound Culture - Preliminary, Resulted Escherichia Coli Streptococcus Sanguinis 06/26/17 Anaerobic Culture, Received Pending 06/26/17 Gram Stain - Final, Resulted 06/26/17 Wound Culture, Resulted Pending 06/26/17 Urine Culture - Final, Complete 06/26/17 Gram Stain - Final, Resulted 06/26/17 Wound Culture, Resulted Pending DAFNE EMMANUEL DO Jun 29, 2017 02:21
[2017-06-29] MEDS: PERCOCET 5MG/325MG TAB PO PRN ×3 (04:40→22:13)
[2017-06-29 04:47] VITALS: BP 146/95
[2017-06-29] MEDS: HEPARIN SOD (PORCINE) 5000 UNITS/ML VIAL SQ SCH ×3 (06:19→20:49)
[2017-06-29 07:35] LABS: MEAN CORPUSCULAR HEMOGLOBIN 31.3 pg (27.0-33.0); MEAN CORPUSCULAR HGB CONC 33.6 g/dl (32.0-36.5); MEAN CORPUSCULAR VOLUME 92.9 fl (80.0-96.0); RED CELL DISTRIBUTION WIDTH 13.1 % (11.5-14.5); WHITE BLOOD COUNT 8.4 K/mm3 (4.0-10.0)
[2017-06-29 07:52] LABS: ANION GAP 8 MEQ/L (8-16); BLOOD UREA NITROGEN 10 MG/DL (7-18); CALCIUM LEVEL 9.2 MG/DL (8.5-10.1); CARBON DIOXIDE LEVEL 28 MEQ/L (21-32); CHLORIDE LEVEL 106 MEQ/L (98-107); GLOMERULAR FILTRATION RATE > 60.0 (>60); GLUCOSE, FASTING 139 MG/DL (70-105); POTASSIUM SERUM 4.1 MEQ/L (3.5-5.1); SODIUM LEVEL 142 MEQ/L (136-145)
[2017-06-29] MEDS: FAMOTIDINE 20 MG TAB PO SCH (08:44)
[2017-06-29] MEDS: MORPHINE 4 MG/ML 1ML SYRINGE IV PRN ×2 (10:57→20:50)
[2017-06-29] MEDS ORDERED: TRIAMCINOLONE ACETONIDE SUSP 40 MG/ML VIAL (J3301) IA ONE (12:00)
[2017-06-29] MEDS ORDERED: LIDOCAINE 1% MDV INJ 50 ML VIAL SC ONE (12:00)
[2017-06-29] MEDS: cefTRIAXone SOD 1 GM in D5W MINI-BAG PLUS 50 ML IV SCH (12:14)
[2017-06-29 14:00] VITALS: BP 149/86
[2017-06-29 15:43] LABS: RBC ADVIA BF 0; RBC CALC. BF < 10000 (< 10mm3 cells/uL); WBC ADVIA BF 12.8; WBC CALC. BF 12800 cells/uL (0-20)
[2017-06-29 15:49] LABS: SYNOVIAL FLUID COLOR YELLOW (YELLOW)
[2017-06-29 15:54] LABS: CRYSTALS, BODY FLUID URIC ACID (NONE SEEN)
[2017-06-29 16:19] LABS: BF DIFF IF INDICATED? YES (NO)
[2017-06-29] MEDS: LISINOPRIL 20 MG TAB PO SCH (16:28)
[2017-06-29 17:23] LABS: CC BF DIFF EXAM UNSPUN
[2017-06-29 17:24] LABS: HCT SOURCE LFT KNEE
--- NOTE | 2017-06-29 18:50 | CR ---
DATE OF CONSULTATION: 06/29/2017 CHIEF COMPLAINT: Left knee effusion. HISTORY OF PRESENT ILLNESS: Attila is a pleasant 47-year-old male who was admitted to [facility] on 06/26/2017 for a scrotal abscess. He did undergo surgical debridement and is on antibiotics for that. With regard to his knee, he reports about one year of left knee pain following a valgus injury after colliding with his dogs. He has had intermittent pain and mild effusions but nothing severe. He had x-rays earlier in the month during a routine history and physical, which showed some mild arthritis. Basically, he developed a large knee effusion in morning of 06/28/2017 with significant pain. Over the course of the day, he developed decreased range of motion. He has been afebrile for over 36 hours. Pain is diffuse but worse in the lateral aspect of the knee. He has an informal diagnosis of gout, which has only been in his foot. He also reports some left ankle pain, but that is improving. PAST MEDICAL HISTORY: Positive for: 1. Hypertension. 2. Chronic testicular pain. PAST SURGICAL HISTORY: 1. Hand surgery. 2. Orchiectomy. MEDICATIONS: Lisinopril and Rocephin. ALLERGIES: No known drug allergies. SOCIAL HISTORY: Patient works in construction. He smokes about one pack of cigarettes per day but is interested in quitting, and he drinks alcohol socially. REVIEW OF SYSTEMS: Patient denies neurologic, cardiac, pulmonary, or abdominal symptoms. Musculoskeletal symptoms as above. PHYSICAL EXAMINATION: VITAL SIGNS: Patient is currently afebrile with stable vital signs. GENERAL: Reveals a well-appearing male in no distress. Alert and oriented times three. NEUROLOGIC: Appropriate mood and affect. CARDIOVASCULAR: 2+ dorsalis pedis (DP) pulse with a regular rate. PULMONARY: Regular nonlabored breathing. MUSCULOSKELETAL: Exam of the left knee reveals a large but soft effusion. There is no warmth or erythema. Patient can be passively ranged from 10-60 degrees in the supine position with significant pain at the end range. He has focal tenderness to palpation along the lateral joint line, but medial joint line and patella are nontender. His calf and soft, compressible, and nontender. There is minimal swelling in the left ankle with on tenderness, and he can range from 5 degrees of dorsiflexion (DF to 30 degrees of plantarflexion (PF). NEUROLOGIC: Fires superficial peroneal (SP), deep peroneal (DP), tibialis anterior (TA), and gastrocsoleus (GS) against resistance. Sensation to light touch intact. SKIN: Intact. RADIOLOGY: Three views of left knee were obtained at outside facility on June 21 and available for my review. These are nonweightbearing. There are some mild arthritic changes in the medial and patellofemoral compartments. LABORATORY STUDIES: Patient had a white count of 8.4 today and C-reactive protein of 23.5 on June 26. ASSESSMENT AND PLAN: Attila is a 47-year-old gentleman with a left knee effusion. Clinically this is not acting like a septic joint, but given his recent infection, aspiration is appropriate to rule out a septic joint. We discussed the risks and benefits of a left knee aspiration, and he understands the risks include, but were not limited to, bleeding, infection, damage to an adjacent neurovascular structure, and need for additional surgery. A written informed consent was obtained. PROCEDURE NOTE: The left knee was sterilely prepped with Betadine, and then using sterile technique and an 18-gauge needle, I aspirated 60 mL of slightly hazy yellow synovial fluid. Patient tolerated this reasonably well. Sterile bandage applied. Fluid was sent for cell count, culture, and crystals. At this point, the plan is to followup on the aspiration results that were ordered stat, and I have ordered a new C-reactive protein. My clinical concern for his septic joint is low, and I did explain if this is concerning for infection, we would have to proceed with irrigation and debridement.
[2017-06-29 21:30] VITALS: BP 181/112
[2017-06-29 22:05] VITALS: BP 172/97
[2017-06-29] MEDS ORDERED: amLODIPine 5 MG TAB PO ONE (23:30)
--- NOTE | 2017-06-30 01:54 | IPNPDOC ---
Subjective Date Seen The patient was seen on 06/29/17. Subjective Chief Complaint/HPI The patient is a 47-year-old male admitted with a reason for visit of Left Scrotal Abscess. Events since last encounter Seen by ortho today re: L knee, which was aspirated. He further notes bilateral eye irritation and redness medially. His eyes are a bit itchy, and he has been rubbing them. ENT: Denies: Head Aches Pulmonary: Denies: Dyspnea, Cough Cardiovascular: Denies: Chest Pain Gastrointestinal: Reports: Vomiting, Denies: Nausea, Diarrhea, Constipation Musculoskeletal: Reports: Leg Pain, Joint Pain Objective Physical Examination General Exam: Positive: Alert, Cooperative Chest Exam: Positive: Clear to auscultation, Normal air movement Heart Exam: Positive: Rate Normal Abdomen Exam: Positive: Normal bowel sounds, Soft, Negative: Tenderness Male Exam: Negative: Normal Genital Exam (L orchiectomy) Extremity Exam: Positive: Swelling (L knee without prominent erythema) Assessment /Plan Problems (1) Left knee pain Problem Text: 06/29 -- arthrocentesis done today by ortho Will consult ortho. X ray last week. I suspect gout, though patient states this is not typical of gout for him. I suspect a fluid analysis will be helpful. No steroids in light of current infection. As his renal function is improving, will try NSAIDs. (Will DC if they cause a decline in renal function. ) (2) Scrotal abscess Status: Acute Problem Text: S/p orchiectomy. (3) Acute kidney injury Status: Resolved Problem Text: Improved. Plan/VTE VTE Prophylaxis Ordered?: Yes VTE Exclusion Mechanical Proph: N/A:VTE Prophy Ordered VTE Exclusion Pharmacological: N/A:VTE Prophy Ordered Plan/Urinary Catheter Urinary Catheter: D/C Fuentes VS, I&O, 24H, Fishbone Vital Signs/I&O Vital Signs Date Time Temp Pulse Resp B/P (MAP) Pulse Ox O2 Delivery O2 Flow Rate FiO2 06/29/17 23:45 89 162/98 06/29/17 22:43 18 96 06/29/17 21:30 99.4 Room Air 06/28/17 17:40 3.0 I&O- Last 24 Hours up to 6 AM 06/30/17 06:00 Intake Total 840 ml Balance 840 ml Laboratory Data 24H LABS Laboratory Tests 2 06/29/17 07:18: Anion Gap 8, Glomerular Filtration Rate > 60.0, Blood Urea Nitrogen 10, Creatinine 1.00, Sodium Level 142, Potassium Level 4.1, Chloride Level 106, Carbon Dioxide Level 28, Calcium Level 9.2, C-Reactive Protein, Quantitative 15.20H 06/29/17 13:45: Body Fluid Hematocrit < 1.0, Body Fluid Hematocrit Source LFT KNEE, Body Fluid Neutrophils 95, Body Fluid Monocytes/Macrophages 5, Body Fluid Crystals URIC ACIDH, Body Fluid Crystal Source LFT KNEE, Synovial Fluid Source LFT KNEE, Synovial Fluid Color YELLOW, Synovial Fluid Appearance CLOUDY, Synovial Fluid WBC 49721Q, Synovial Fluid RBC < 51615 CBC/BMP Laboratory Tests 06/29/17 07:18 Red Blood Count 4.51, Mean Corpuscular Volume 92.9, Mean Corpuscular Hemoglobin 31.3, Mean Corpuscular Hemoglobin Concent 33.6, Red Cell Distribution Width 13.1 , Calcium Level 9.2 Microbiology Microbiology 06/26/17 Blood Culture - Preliminary, Resulted No Growth after 72 hours. All specime... 06/26/17 Blood Culture - Preliminary, Resulted No Growth after 72 hours. All specime... 06/29/17 Gram Stain - Final, Resulted 06/29/17 Body Fluid Culture, Resulted Pending 06/26/17 Gram Stain - Final, Complete 06/26/17 Wound Culture - Final, Complete Escherichia Coli Streptococcus Sanguinis Staph.aureus Methicillin Resis 06/26/17 Anaerobic Culture, Received Pending 06/26/17 Gram Stain - Final, Complete 06/26/17 Wound Culture - Final, Complete Staphylococcus Sp Coag Neg Corynebacterium Species 06/26/17 Urine Culture - Final, Complete 06/26/17 Gram Stain - Final, Complete 06/26/17 Wound Culture - Final, Complete Escherichia Coli Strep Anginosus (S.milleri) Staph.aureus Methicillin Resis DAFNE EMMANUEL DO Jun 30, 2017 01:54
[2017-06-30] MEDS: PERCOCET 5MG/325MG TAB PO PRN ×3 (03:24→22:50)
[2017-06-30 06:00] VITALS: BP 115/63
[2017-06-30] MEDS: HEPARIN SOD (PORCINE) 5000 UNITS/ML VIAL SQ SCH ×3 (06:12→22:43)
[2017-06-30 07:46] LABS: MEAN CORPUSCULAR HEMOGLOBIN 31.8 pg (27.0-33.0); MEAN CORPUSCULAR HGB CONC 34.2 g/dl (32.0-36.5); MEAN CORPUSCULAR VOLUME 92.9 fl (80.0-96.0); RED CELL DISTRIBUTION WIDTH 12.6 % (11.5-14.5); WHITE BLOOD COUNT 8.2 K/mm3 (4.0-10.0)
[2017-06-30 08:07] LABS: ANION GAP 9 MEQ/L (8-16); BLOOD UREA NITROGEN 12 MG/DL (7-18); CALCIUM LEVEL 8.9 MG/DL (8.5-10.1); CARBON DIOXIDE LEVEL 27 MEQ/L (21-32); CHLORIDE LEVEL 105 MEQ/L (98-107); CREATININE FOR GFR 0.99 MG/DL (0.70-1.30); GLOMERULAR FILTRATION RATE > 60.0 (>60); GLUCOSE, FASTING 109 MG/DL (70-105); POTASSIUM SERUM 4.9 MEQ/L (3.5-5.1); SODIUM LEVEL 141 MEQ/L (136-145)
[2017-06-30] MEDS: FAMOTIDINE 20 MG TAB PO SCH (10:32)
[2017-06-30] MEDS: POLYVINYL ALCOHOL OPHTH SOLN 15 ML(LIQUITEARS) OU PRN ×2 (10:33→22:50)
[2017-06-30] MEDS: LISINOPRIL 20 MG TAB PO SCH (10:33)
[2017-06-30] MEDS: cefTRIAXone SOD 1 GM in D5W MINI-BAG PLUS 50 ML IV SCH (12:38)
[2017-06-30 14:00] VITALS: BP 151/80
--- NOTE | 2017-06-30 15:13 | IPN ---
DATE: 06/29/2017 Mr. Francois is doing well except he woke up two days ago and started to have left knee pain and today his left knee was aspirated by orthopedics since it had gotten extremely swollen and warm to the touch. Supposedly clear fluid was drained. The patient is now postop day #3 status post left osteotomy orchiectomy a scrotal I and D. He is getting wet to dry dressing changes twice daily and is tolerating these fairly well. PHYSICAL EXAMINATION: He is afebrile with a temperature of 97.5. His pulse is 82 and his blood pressure is 149/86. His Fuentes catheter was removed and he is voiding without difficulty. He has no cerebrovascular accident (CVA) tenderness. His abdomen is soft and nontender. His scrotal sac is still edematous with erythema, but this is not spreading at all and this is not tender to touch and was extremely tender according to the patient two days ago. He does have a large open wound with a dressing inside. He has no calf tenderness or swelling, but his left knee is extremely swollen and erythematous to the touch. LABORATORY DATA: His white blood count today is 8.4. His hemoglobin and hematocrit is 14.1 over 41.9. His creatinine is stable at 1.0. His wound culture came back with E-coli, Streptococcus and staphylococcus aureus, which was methicillin-resistant. IMPRESSION: 1. Postoperative day #3 left orchiectomy and I and D of a significant scrotal abscess. 2. Left knee pain and swelling, status post orthopedic consult and aspiration today. 3. Acute kidney injury, now resolved. PLAN: 1. Continue wet to dry dressing changes and the patient is going to start to learn how to do these himself. 2. Recommend scrotal elevation to help with the edema. 3. Consider a infectious disease consultation to decide the best antibiotics to send the patient home with. 4. The patient will get outpatient consult with Dr. Stallings and feels that he will be able to do wet to dry dressings at home.
[2017-06-30] MEDS ORDERED: KETOROLAC 30 MG/ML VIAL (J1885) IV ONE (17:00)
[2017-06-30] MEDS: CLINDAMYCIN 150 MG CAP PO SCH ×2 (17:41→22:43)
[2017-06-30 20:50] VITALS: BP 145/96
--- NOTE | 2017-06-30 20:52 | IPN ---
DATE: 06/30/2017 The patient is lying in a hospital bed resting comfortably. He has had bilateral eye irritation and today it is much worse in his right eye. He says that his left knee feels better after the aspiration and that they believe that it is gout. He was able to do his wet to dry dressing changes it sounds like yesterday and seems to be comfortable. He is moving his bowels daily without issue. PHYSICAL EXAMINATION: He is afebrile and his blood pressure is 151/80 and his pulse is 84. He has no CVA tenderness. His abdomen is soft and nontender. His scrotum appears to be less edematous today and less erythematous than previously. He has the wet to dry dressing in the middle open wound. His extremities show no cyanosis, clubbing or edema. LABORATORY DATA: His white blood count is stable at 8.2 and his hemoglobin and hematocrit is 14.5 over 42.5. His creatinine is down to 0.99 and the rest of his chemistry is normal. His fasting glucose was 109. Microbiology from his synovial fluid is still pending. The final wound cultures had shown Escherichia (E) coli, Streptococcus anginosus, Staphylococcus aureus, and Streptococcus sanguinis and there was also some corynebacterium species on previous wound cultures. IMPRESSION: 1. Postoperative day #4 left orchiectomy and an incision and drainage of significant scrotal abscess. 2. Left knee effusion most likely secondary to gout. 3. Acute kidney injury, now resolved. 4. Eye irritation of questionable etiology. PLAN: 1. Continue wet to dry dressing changes twice daily and the patient believes that he will be able to do this at home with some home health care. 2. Continue scrotal elevation to help with the edema. 3. Await infectious disease recommendations for by mouth antibiotics and when these can be started. 4. Appreciate the hospitalist's input about his eye and knee and also he will follow with Dr. Stallings as an outpatient.
[2017-06-30 21:50] VITALS: BP 145/96
[2017-06-30] MEDS: MORPHINE 4 MG/ML 1ML SYRINGE IV PRN (23:37)
--- NOTE | 2017-07-01 02:53 | IPNPDOC ---
Subjective Date Seen The patient was seen on 06/30/17. Subjective Chief Complaint/HPI The patient is a 47-year-old male admitted with a reason for visit of Left Scrotal Abscess. Events since last encounter Incision doing better. Ortho confirmed diagnosis of gout. L knee improved but still painful. Eyes bothering him less, though he notes the R eye is still red. He is learning how to pack his scrotal incision. Constitutional: Denies: Chills, Fever Eyes: Reports: Redness Skin: Reports: Other (scrotal incision) Pulmonary: Denies: Dyspnea, Cough Cardiovascular: Denies: Chest Pain, Palpitations Gastrointestinal: Denies: Nausea, Vomiting, Diarrhea, Constipation Objective Physical Examination General Exam: Positive: Alert, Cooperative Chest Exam: Positive: Clear to auscultation, Normal air movement Heart Exam: Positive: Rate Normal Abdomen Exam: Positive: Normal bowel sounds, Soft, Negative: Tenderness Male Exam: Negative: Normal Genital Exam (L orchiectomy, packing clean with minimal discharge) Extremity Exam: Positive: Swelling (L knee without prominent erythema) Psych Exam: Positive: Mental status NL Assessment /Plan Problems (1) Left knee pain Problem Text: 06/30 -- gout. Late to start colchicine. No steroids becaue of infection. Will change to Toradol. 06/29 -- arthrocentesis done today by ortho Will consult ortho. X ray last week. I suspect gout, though patient states this is not typical of gout for him. I suspect a fluid analysis will be helpful. No steroids in light of current infection. As his renal function is improving, will try NSAIDs. (Will DC if they cause a decline in renal function. ) (2) Scrotal abscess Status: Acute Problem Text: 06/30 -- on clinda PO in preparation for DC. Will convert IV abx to PO upon discharge. S/p orchiectomy. (3) Acute kidney injury Status: Resolved Problem Text: Improved. (4) Subconjunctival hemorrhage of right eye Problem Text: Minor. Encouraged not to rub eye, artificial tears as necessary. Plan/VTE VTE Prophylaxis Ordered?: Yes VTE Exclusion Mechanical Proph: N/A:VTE Prophy Ordered VTE Exclusion Pharmacological: N/A:VTE Prophy Ordered Plan/Urinary Catheter Urinary Catheter: D/C Fuentes VS, I&O, 24H, Fishbone Vital Signs/I&O Vital Signs Date Time Temp Pulse Resp B/P (MAP) Pulse Ox O2 Delivery O2 Flow Rate FiO2 06/30/17 23:37 18 06/30/17 21:50 97.3 69 145/96 (112) 96 Room Air 06/30/17 17:00 3.0 I&O- Last 24 Hours up to 6 AM 07/01/17 05:59 Intake Total 1440 ml Balance 1440 ml Laboratory Data 24H LABS Laboratory Tests 2 06/30/17 07:23: Anion Gap 9, Glomerular Filtration Rate > 60.0, Blood Urea Nitrogen 12, Creatinine 0.99, Sodium Level 141, Potassium Level 4.9, Chloride Level 105, Carbon Dioxide Level 27, Calcium Level 8.9 CBC/BMP Laboratory Tests 06/30/17 07:23 Red Blood Count 4.57, Mean Corpuscular Volume 92.9, Mean Corpuscular Hemoglobin 31.8, Mean Corpuscular Hemoglobin Concent 34.2, Red Cell Distribution Width 12.6 , Calcium Level 8.9 Microbiology Microbiology 06/26/17 Blood Culture - Preliminary, Resulted No Growth after 72 hours. All specime... 06/26/17 Blood Culture - Preliminary, Resulted No Growth after 72 hours. All specime... 06/29/17 Gram Stain - Final, Resulted 06/29/17 Body Fluid Culture, Resulted Pending 06/26/17 Gram Stain - Final, Complete 06/26/17 Wound Culture - Final, Complete Escherichia Coli Streptococcus Sanguinis Staph.aureus Methicillin Resis 06/26/17 Anaerobic Culture, Received Pending 06/26/17 Gram Stain - Final, Complete 06/26/17 Wound Culture - Final, Complete Staphylococcus Sp Coag Neg Corynebacterium Species 06/26/17 Urine Culture - Final, Complete 06/26/17 Gram Stain - Final, Complete 06/26/17 Wound Culture - Final, Complete Escherichia Coli Strep Anginosus (S.milleri) Staph.aureus Methicillin Resis DAFNE EMMANUEL DO Jul 01, 2017 02:53
[2017-07-01] MEDS: HEPARIN SOD (PORCINE) 5000 UNITS/ML VIAL SQ SCH (05:43)
[2017-07-01 06:00] VITALS: BP 136/82
[2017-07-01] MEDS ORDERED: KETOROLAC TROMETHAMINE 10 MG TAB PO PRN (06:00)
[2017-07-01 07:19] LABS: MEAN CORPUSCULAR HEMOGLOBIN 31.6 pg (27.0-33.0); MEAN CORPUSCULAR HGB CONC 33.9 g/dl (32.0-36.5); MEAN CORPUSCULAR VOLUME 93.2 fl (80.0-96.0); RED CELL DISTRIBUTION WIDTH 13.2 % (11.5-14.5); WHITE BLOOD COUNT 8.1 K/mm3 (4.0-10.0)
[2017-07-01 07:30] LABS: ANION GAP 10 MEQ/L (8-16); BLOOD UREA NITROGEN 15 MG/DL (7-18); CALCIUM LEVEL 9.2 MG/DL (8.5-10.1); CARBON DIOXIDE LEVEL 24 MEQ/L (21-32); CHLORIDE LEVEL 108 MEQ/L (98-107); CREATININE FOR GFR 0.97 MG/DL (0.70-1.30); GLOMERULAR FILTRATION RATE > 60.0 (>60); GLUCOSE, FASTING 100 MG/DL (70-105); POTASSIUM SERUM 4.6 MEQ/L (3.5-5.1); SODIUM LEVEL 142 MEQ/L (136-145)
[2017-07-01 09:54] VITALS: BP 136/82
[2017-07-01] MEDS: CLINDAMYCIN 150 MG CAP PO SCH ×2 (09:54→15:48)
[2017-07-01] MEDS: FAMOTIDINE 20 MG TAB PO SCH (09:54)
[2017-07-01] MEDS: LISINOPRIL 20 MG TAB PO SCH (09:54)
[2017-07-01] MEDS: PERCOCET 5MG/325MG TAB PO PRN ×2 (09:56→15:53)
[2017-07-01] MEDS ORDERED: COLC1CAP PO (12:18)
[2017-07-01] MEDS ORDERED: AKWASOL OU (13:01)
[2017-07-01] MEDS ORDERED: PERCOCET PO (13:01)
[2017-07-01] MEDS ORDERED: BACT800T5 PO (13:01)
[2017-07-01] MEDS ORDERED: KEFL500C17 PO (13:01)
[2017-07-01] MEDS ORDERED: KETO10TAB PO (13:04)
[2017-07-01 14:00] VITALS: BP 164/96
[2017-07-01] MEDS: cefTRIAXone SOD 1 GM in D5W MINI-BAG PLUS 50 ML IV SCH (15:48)
--- NOTE | 2017-07-01 16:49 | IPN ---
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 I did see Mr. Francois in the hospital yesterday on 06/29/2017, and he stated that his knee pain was temporarily improved from the aspiration, but then had recurred. To his knowledge, he had not been started on any anti-inflammatory medications. He was able to flex his knee to 90 degrees. His aspiration results showed a white blood cell count of 12,800, and was positive for gout crystals. Given my low clinical concern for septic arthritis, the white blood cell count well below the threshold of 50,000, and the positive uric acid crystals, this is not concerning for septic arthritis. I was notified by the orthopedic nurse practitioner this morning that the cultures from the aspiration came back with coagulase-negative staphylococcus species. The most likely explanation for this is a contaminant, given the clinical and laboratory picture here of gout. At this point, there is no indicated for a re-aspiration, certainly no indication for surgery based off his contaminant. The nurse practitioner did discuss this with the lab who also agreed, as did she, that this is a contaminant. Certainly if the patient's clinical picture deteriorates or if his white blood cell count had been borderline for possible septic arthritis, the knee can be re-aspirated. The patient should be treated medically for gout. That could be with oral non-steroidal anti-inflammatory medications, or a dose of intravenous (IV) Toradol. Any further management would be medical management for gout. Not appropriate to perform a cortisone injection when the patient had a recent infection.
--- NOTE | 2017-07-03 01:59 | DSES ---
DATE OF ADMISSION: 06/26/2017 DATE OF DISCHARGE: 07/01/2017 DISCHARGE DIAGNOSES: 1. Testicular and scrotal abscess status post left orchiectomy and incision and drainage of scrotal abscess on 06/26/2017. 2. Left knee effusion which appears to be gout with bacillus, which was felt to be a contaminant. 3. Eye irritation. 4. Acute kidney injury on admission, now completely resolved. DISCHARGE MEDICATIONS: - Bactrim DS one tablet by mouth twice a day for 10 days - Keflex 500 mg by mouth twice a day for 10 days - probiotics - colchicine - oxycodone 1-2 tablets by mouth every 4 hours as needed - normal saline eye drops FOLLOWUP: 1. The patient will followup with Dr. Stallings as an outpatient for continued wound care. 2. Followup with his primary care provider (PCP) about his eye and gout. 3. Follow up with urology in approximately 1 month. PATIENT INSTRUCTIONS: The patient was instructed to continue with wet to dry dressing changes twice daily unless Dr. Stallings changes this and he will call us with any changes.
== END 2017-07-01 18:50 | disposition home or self-care (01) | DRG 483 ==
LOC: M ED 10:10 → EEVIPCON 13:19 → M ED INP 13:19 → M PCU 19:57 → M MS4PR 06-28 20:01
PROVIDERS: ADMIT Urology; ATTEND Urology
PROC: 0HBAXZZ Excision of Inguinal Skin, External Approach (ICD-10-PCS; 2017-06-26)
PROC: 0VTB0ZZ Resection of Left Testis, Open Approach (ICD-10-PCS; principal; 2017-06-26 16:00)
PROC: 0S9D3ZZ Drainage of Left Knee Joint, Percutaneous Approach (ICD-10-PCS; 2017-06-29)
DX: N49.2 Inflammatory disorders of scrotum (principal); N17.9 Acute kidney failure, unspecified; N45.4 Abscess of epididymis or testis; N44.00 Torsion of testis, unspecified; M10.9 Gout, unspecified; Z79.899 Other long term (current) drug therapy; M25.462 Effusion, left knee; I10 Essential (primary) hypertension; F17.210 Nicotine dependence, cigarettes, uncomplicated; H11.31 Conjunctival hemorrhage, right eye

== ENCOUNTER → 2017-08-01 | Outpatient (REF) | payer BC | LOC: M SFHCCLAY 07:41 | PROVIDERS: ATTEND Nurse Practitioner | DX: M25.562 Pain in left knee (principal) ==

== ENCOUNTER → 2017-08-15 | Outpatient (REF) | payer BC ==
[2017-08-15 13:29] LABS: MEAN CORPUSCULAR HEMOGLOBIN 31.7 pg (27.0-33.0); MEAN CORPUSCULAR VOLUME 93.4 fl (80.0-96.0); RED CELL DISTRIBUTION WIDTH 14.8 % (11.5-14.5); WHITE BLOOD COUNT 8.2 10^3/uL (4.0-10.0)
[2017-08-15 13:49] LABS: URIC ACID 9.4 MG/DL (3.5-7.2)
[2017-08-15 14:05] LABS: ERYTHROCYTE SEDIMENTATION RATE 7 mm/hr (0-15)
[2017-08-15 14:11] LABS: BANDS 1 % (< 11)
[2017-08-15 14:12] LABS: ANISOCYTOSIS 1+
[2017-08-17 00:06] LABS: Lyme Disease IgG/IgM Antibodie <0.91 ISR (0.00-0.90); Lyme Disease IgM Ab Quantitati <0.80 index (0.00-0.79)
== END ==
LOC: M LABDRAW1 11:54
PROVIDERS: ATTEND Physician Assistant Surgical
DX: M25.462 Effusion, left knee (principal)

== ENCOUNTER → 2017-10-26 | Outpatient (REF) | payer BC ==
[2017-10-26 12:20] LABS: ALBUMIN 4.4 GM/DL (3.2-5.2); ALBUMIN/GLOBULIN RATIO 1.63 (1.00-1.93); ALKALINE PHOSPHATASE 59 U/L (45-117); ALT/SGPT 43 U/L (12-78); ANION GAP 8 MEQ/L (8-16); AST/SGOT 17 U/L (7-37); BILIRUBIN,TOTAL 0.3 MG/DL (0.2-1.0); BLOOD UREA NITROGEN 16 MG/DL (7-18); CALCIUM LEVEL 9.2 MG/DL (8.5-10.1); CARBON DIOXIDE LEVEL 26 MEQ/L (21-32); CHLORIDE LEVEL 108 MEQ/L (98-107); CHOLESTEROL LEVEL 198 MG/DL (<200); GLOMERULAR FILTRATION RATE > 60.0 (>60); GLUCOSE, FASTING 116 MG/DL (70-105); SODIUM LEVEL 142 MEQ/L (136-145); TOTAL PROTEIN 7.1 GM/DL (6.4-8.2); TRIGLYCERIDES LEVEL 183 MG/DL (<150); URIC ACID 7.4 MG/DL (3.5-7.2)
[2017-10-26 12:39] LABS: POTASSIUM SERUM 5.2 MEQ/L (3.5-5.1)
== END ==
LOC: M SFHCCLAY 08:25
PROVIDERS: ATTEND Nurse Practitioner Family
DX: R73.01 Impaired fasting glucose (principal)

== ENCOUNTER → 2017-12-05 | Outpatient (REF) | payer BC ==
[2017-12-05 11:57] LABS: ALBUMIN 3.9 GM/DL (3.2-5.2); ALBUMIN/GLOBULIN RATIO 1.56 (1.00-1.93); ALKALINE PHOSPHATASE 63 U/L (45-117); ALT/SGPT 557 U/L (12-78); ANION GAP 6 MEQ/L (8-16); AST/SGOT 344 U/L (7-37); BILIRUBIN,TOTAL 0.7 MG/DL (0.2-1.0); BLOOD UREA NITROGEN 14 MG/DL (7-18); CALCIUM LEVEL 8.2 MG/DL (8.5-10.1); CARBON DIOXIDE LEVEL 26 MEQ/L (21-32); CHLORIDE LEVEL 110 MEQ/L (98-107); CHOLESTEROL LEVEL 137 MG/DL (<200); CHOLESTEROL RISK RATIO 4.566 (<5); CREATININE FOR GFR 0.98 MG/DL (0.70-1.30); GLOMERULAR FILTRATION RATE > 60.0 (>60); GLUCOSE, FASTING 126 MG/DL (70-105); HDL CHOLESTEROL 30 MG/DL (>40); LDL CHOLESTEROL 64.6 MG/DL (<100); NON-HDL-C 107 MG/DL; POTASSIUM SERUM 4.7 MEQ/L (3.5-5.1); SODIUM LEVEL 142 MEQ/L (136-145); TOTAL PROTEIN 6.4 GM/DL (6.4-8.2); TRIGLYCERIDES LEVEL 212 MG/DL (<150)
== END ==
LOC: M SFHCCLAY 07:22
DX: E78.5 Hyperlipidemia, unspecified (principal); R73.01 Impaired fasting glucose; M10.9 Gout, unspecified
CPT/HCPCS: 80053

== ENCOUNTER → 2018-03-03 | Outpatient (CLI) | payer BC ==
[~2018-03-03] MED LIST changes: -ADVI200T PO; -AKWASOL OU; -BACT800T5 PO; -COLC1CAP PO; +ISOVUE-370 76% 100ML VIAL (Q9967) As Ordered; -KEFL500C17 PO; -KETO10TAB PO; -LISI-538; -LISI-538 PO; -PERCOCET PO; -SULFAMETHOXAZOLE-TMP
== END ==
LOC: M RAD 08:32
DX: R10.30 Lower abdominal pain, unspecified (principal); R59.9 Enlarged lymph nodes, unspecified; K57.30 Diverticulosis of large intestine without perforation or abscess without bleeding
CPT/HCPCS: Q9967

== ENCOUNTER → 2018-04-06 | Outpatient (REF) | payer BC ==
[2018-04-06 13:41] LABS: APPEARANCE, URINE CLEAR (CLEAR); BACTERIA, URINE AUTO NEGATIVE (NEGATIVE); BILIRUBIN, URINE AUTO NEGATIVE (NEGATIVE); BLOOD, URINE BLOOD NEGATIVE (NEGATIVE); COLOR, URINE YELLOW (YELLOW); GLUCOSE, URINE (UA) AUTO NEGATIVE (NEGATIVE); KETONE, URINE AUTO NEGATIVE (NEGATIVE); LEUKOCYTE ESTERASE, URINE AUTO NEGATIVE (NEGATIVE); MUCUS, URINE SMALL (NEGATIVE); NITRITE, URINE AUTO NEGATIVE (NEGATIVE); PROTEIN, URINE AUTO NEGATIVE (NEGATIVE); RBC, URINE AUTO 1 /HPF (0-3); SPECIFIC GRAVITY URINE AUTO 1.018 (1.002-1.035); SQUAMOUS EPITHELIAL CELL UR AU 1 /HPF (0-6); WBC, URINE AUTO 3 /HPF (0-3)
== END ==
LOC: M SMT 12:53
DX: N39.0 Urinary tract infection, site not specified (principal)
CPT/HCPCS: 81001

== ENCOUNTER → 2018-07-27 | Outpatient (REF) | payer BC | LOC: M SFHCCLAY 13:52 | DX: L02.214 Cutaneous abscess of groin (principal) | CPT/HCPCS: 87186 ==